=== PATIENT | female | born 1945 | race Caucasian/White ===

== ENCOUNTER 2019-04-10 17:49 | Inpatient (IN) | payer MEDICARE ==
[2019-04-10 18:21] LABS: HEMATOCRIT 33.6 % (36.0-47.0); MEAN CORPUSCULAR HEMOGLOBIN 25.7 pg (27.0-33.4); MEAN CORPUSCULAR HGB CONC 32.6 g/dL (32.0-36.0); MEAN CORPUSCULAR VOLUME 79 fl (80-97); PLATELET COUNT 463 10^3/uL (150-450); RED BLOOD COUNT 4.27 10^6/uL (3.72-5.28); RED CELL DISTRIBUTION WIDTH 16.7 % (11.5-14.0); WHITE BLOOD COUNT 12.7 10^3/uL (4.0-10.5)
[2019-04-10 18:35] LABS: ALBUMIN 2.1 g/dL (3.5-5.0); ALKALINE PHOSPHATASE 107 U/L (38-126); ANION GAP 8 (5-19); ASPARTATE AMINO TRANSFERASE 14 U/L (14-36); BILIRUBIN,DIRECT 0.3 mg/dL (0.0-0.4); BILIRUBIN,TOTAL 0.6 mg/dL (0.2-1.3); BLOOD UREA NITROGEN 39 mg/dL (7-20); CALCIUM 7.1 mg/dL (8.4-10.2); CARBON DIOXIDE 29 mmol/L (22-30); CHLORIDE 96 mmol/L (98-107); GLUCOSE 84 mg/dL (75-110); TOTAL PROTEIN 4.9 g/dL (6.3-8.2)
[2019-04-10 18:37] LABS: CREATINE KINASE < 20 U/L (30-135)
[2019-04-10 18:39] LABS: POTASSIUM 2.3 mmol/L (3.6-5.0)
[2019-04-10 18:43] LABS: ABSOLUTE LYMPHOCYTES# (MANUAL) 0.1 10^3/uL (0.5-4.7); ABSOLUTE MONOCYTES # (MANUAL) 0.3 10^3/uL (0.1-1.4); BASOPHILS % (MANUAL) 0 % (0-2); EOSINOPHILS % (MANUAL) 0 % (0-6); LYMPHOCYTES % (MANUAL) 1 % (13-45); MONOCYTES % (MANUAL) 2 % (3-13); SEGMENTED NEUTROPHILS % (MAN) 97 % (42-78); TOTAL CELLS COUNTED 100
[2019-04-10 18:44] LABS: ANISOCYTOSIS 1+; CREATINE KINASE MB 1.11 ng/mL (<4.55); PLATELET COMMENT ADEQUATE
[2019-04-10 18:47] LABS: TROPONIN I 0.014 ng/mL
--- NOTE | 2019-04-10 18:47 | RADIOLOGY REPORT (SQ) ---
EXAM DESCRIPTION: CHEST SINGLE VIEW COMPLETED DATE/TIME: 04/10/2019 6:37 pm REASON FOR STUDY: chest pain COMPARISON: None. EXAM PARAMETERS: NUMBER OF VIEWS: One view. TECHNIQUE: Single frontal radiographic view of the chest acquired. RADIATION DOSE: NA LIMITATIONS: None. FINDINGS: LUNGS AND PLEURA: Hypoventilated lungs. Right diaphragmatic eventration. Bibasilar airsp guido opacities. No pneumothorax. No left-sided pleural effusion. MEDIASTINUM AND HILAR STRUCTURES: No masses. Contour normal. HEART AND VASCULAR STRUCTURES: Cardiomegaly. BONES: No acute findings. HARDWARE: None in the chest. OTHER: No other significant finding. IMPRESSION: Hypoventilated lungs and right diaphragmatic eventration. Bibasilar airspace opacities. Cardiomegaly. TECHNICAL DOCUMENTATION: JOB ID: [id number] 2010 [employer]- All Rights Reserved Reading location - IP/workstation name: [email or web address]
[2019-04-10] MEDS ORDERED: MORPHINE SULFATE 10 MG/ML INJ IV ONE (20:26)
[2019-04-10] MEDS ORDERED: ONDANSETRON HCL INJ/PF 4 MG/2 ML SDV IV ONE (20:27)
[2019-04-10] MEDS: POTASSI CL 20 MEQ/50 ML RIDER 20 MEQ/50 ML RTUPB IV SCH ×2 (20:35→22:18)
--- NOTE | 2019-04-10 20:56 | ER Document Report ---
ED General - General Chief Complaint: Chest Pain Stated Complaint: CHEST,BACK PAIN Time Seen by Provider: 04/10/19 20:13 TRAVEL OUTSIDE OF THE [place] IN LAST 30 DAYS: No - HPI Notes: Patient is a 73-year-old female who presents to the emergency department for evaluation via EMS. She is an extremely poor historian, and there is no other family or friends present at the bedside. The patient only talks to me about pain in her right side and her back. She states that sharp and stabbing. She states this started today. She denies any fevers or chills. She denies any coughing or shortness of breath. She states she is been eating and drinking normally. She admits freely that she does not see a primary care provider, has not seen one in years, states "I have not needed 1." She really cannot describe her pain or rate it for me, but asks repeatedly for something for her pain. I asked her about edema, she states she has never had any. When I showed her extremely edematous legs, she states she did not know that was edema. She cannot give me any further details regarding this. - Related Data Allergies/Adverse Reactions: No Known Allergies Allergy (Unverified 04/10/19 20:57) Home Medications: None Past Medical History - General Information source: Patient, Emergency Med Personnel - Social History Smoking Status: Unknown if Ever Smoked Chew tobacco use (# tins/day): No Frequency of alcohol use: None Drug Abuse: None Family History: Other - Unable to obtain Patient has suicidal ideation: No Patient has homicidal ideation: No Psychiatric Medical History: Reports: Hx Dementia - Patient's son and informed a nurse via telephone of this diagnosis Review of Systems - Review of Systems Cardiovascular: See HPI -: Yes All other systems reviewed and negative Physical Exam - Vital signs Vitals: Pulse Ox 88 L 04/10/19 17:56 - Notes Notes: This is a frail-appearing 73-year-old female who appears her stated age in a mild amount of distress. She is mildly tachypneic, clearly uncomfortable. She does have some increased work of breathing, but minimally. Vital signs reviewed, please refer to chart. Head is normocephalic, atraumatic. Pupils equal round, reactive to light. Neck is supple without meningismus. Heart is tachycardic with normal S1-S2. Lungs reveal markedly diminished breath sounds at the right base. Abdomen is soft, mildly distended and diffusely tender without rebound or guarding, normoactive bowel sounds throughout. Extremities without cyanosis, clubbing. She has 3+ pitting edema to bilateral lower extremities. Posterior calves are nontender. Peripheral pulses are equal. Skin is warm and dry. Patient is awake, alert, neurological exam is nonfocal. Course - Re-evaluation Re-evalutation: 04/10/19 20:55 Patient presents to the emergency department for evaluation. She is an extremely poor historian. She was placed on the monitor, oxygen per nasal cannula she was hypoxic on presentation. Laboratory investigations were obtained, as were EKG and chest x-ray. The patient was found to be markedly hypokalemic prior to my evaluation, IV potassium was ordered via APC. Magnesium level is added and found to be unremarkable. I do have a high suspicion of failure in this patient. Chest x-ray showed bibasilar airspace disease and findings consistent with a likely right-sided pleural effusion. The patient does have an elevated white count and an elevated heart rate, so blood cultures added. I will cover her her for potential pneumonia given the fact that she meets sepsis criteria, but I do believe this patient's primary issue is heart failure, and will treat her as such. As a result, she will not be given IV fl uids. proBNP was added. It was found to be elevated. Patient was given morphine which should help with pain as well as pulmonary vasodilation. I do not see enough significant distress to warrant BiPAP at this time, and I do not think that this patient with dementia would tolerate it. I did consider Lasix therapy, but with her marked hypokalemia I do not think that is appropriate at this time. Patient will be started on nitroglycerin infusion, we will continue to monitor. Awaiting second troponin, will call medicine for admission. 04/10/19 22:12 Patient is stable. Her pain was improved significantly with the morphine. Her second troponin is negative. I do believe this is all congestive heart failure. I spoke with Dr. Dean, he will accept the patient for admission. - Vital Signs Vital signs: Temp Pulse Resp BP Pulse Ox 98.1 F 24 H 144/89 H 95 04/10/19 20:55 04/10/19 21:01 04/10/19 21:00 04/10/19 21:01 - Laboratory Result Diagrams: 04/10/19 18:05 04/10/19 18:05 Laboratory results interpreted by me: 04/10/19 04/10/19 04/10/19 18:05 18:05 18:05 WBC 12.7 H Hgb 11.0 L Hct 33.6 L MCV 79 L MCH 25.7 L RDW 16.7 H Plt Count 463 H Seg Neuts % (Manual) 97 H Lymphocytes % (Manual) 1 L Monocytes % (Manual) 2 L Abs Neuts (Manual) 12.3 H Abs Lymphs (Manual) 0.1 L Sodium 133.3 L Potassium 2.3 L* Chloride 96 L BUN 39 H Creatinine 1.86 H Est GFR ( Amer) 32 L Est GFR (MDRD) Non-Af 27 L Calcium 7.1 L Creatine Kinase < 20 L NT-Pro-B Natriuret Pep 8760 H Total Protein 4.9 L Albumin 2.1 L - Diagnostic Test Radiology reviewed: Reports reviewed Radiology results interpreted by me: 04/10/19 21:04 Chest X-Ray 04/10/19 17:56 IMPRESSION: Hypoventilated lungs and right diaphragmatic eventration. Bibasilar airspace opacities. Cardiomegaly. - EKG Interpretation by Me Additional EKG results interpreted by me: 04/10/19 21:04 Sinus mechanism at 100 bpm. Multifocal PVCs noted. Left axis deviation. T wave flattening consistent with hypokalemia, nonspecific ST changes throughout, but no elevation concerning for acute infarction. There are no old studies available for comparison. Discharge - Discharge Clinical Impression: New onset of congestive heart failure, Hypokalemia, Hypoxia Sepsis Qualifiers: Sepsis type: sepsis due to unspecified organism Sepsis acute organ dysfunction status: without acute organ dysfunction Qualified Code(s): A41.9 - Sepsis, unspecified organism Condition: Stable Disposition: ADMITTED INPATIENT Admitting Provider: Jermaine (Hospitalist) Unit Admitted: [facility]
[2019-04-10] MEDS ORDERED: NITROGLYCERIN/D5W 50 MG/250 ML RTUINJ IV PRN (21:00)
[2019-04-10] MEDS ORDERED: ASPIRIN 81 MG TABLET, CHEWABLE PO ONE (21:01)
[2019-04-10] MEDS ORDERED: CEFTRIAXONE 1 GM/D5W RTU 1 GM/50 ML RTUPB IV ONE (21:05)
[2019-04-10] MEDS ORDERED: AZITHROMYCIN INJ 500 MG VIAL IV ONE (21:05)
[2019-04-10] MEDS ORDERED: POTASSIUM CHLORIDE 10 MEQ TABLET.ER PO ONE ×2 (21:58→23:00)
[2019-04-10] MEDS ORDERED: ACETAMINOPHEN 325 MG TABLET PO PRN (22:12)
[2019-04-10] MEDS ORDERED: MAG HYDROX/AL HYDROX/SIMETH SUSP 30 ML UDCUP PO PRN (22:12)
[2019-04-10] MEDS ORDERED: POTASSI CL 20 MEQ/50 ML RIDER 20 MEQ/50 ML RTUPB IV SCH (22:15)
[2019-04-10 22:37] LABS: RETICULOCYTE COUNT (AUTO) 0.69 % (0.66-2.85)
[2019-04-10] MEDS ORDERED: FUROSEMIDE INJ/PF 40 MG/4 ML SDV IV ONE (22:45)
--- NOTE | 2019-04-10 22:46 | EKG REPORT ---
SEVERITY:- ABNORMAL ECG - SINUS TACHYCARDIA MULTIFORM VENTRICULAR PREMATURE COMPLEXES LEFT AXIS DEVIATION CONSIDER ANTEROSEPTAL INFARCT NONSPECIFIC REPOL ABNORMALITY, LATERAL LEADS : Confirmed by: Neha Cheng MD 10-Apr-2019 22:45:26
[2019-04-10 22:50] LABS: IRON(TIBC) 19.3 ug/dL (37-170)
[2019-04-10 23:57] LABS: FOLATE 4.35 ng/mL (>2.76)
[2019-04-11] MEDS: POTASSI CL 20 MEQ/50 ML RIDER 20 MEQ/50 ML RTUPB IV SCH ×2 (01:03→05:14)
[2019-04-11 01:56] LABS: APPEARANCE,URINE CLOUDY; BILIRUBIN,URINE NEGATIVE (NEGATIVE); COLOR,URINE DARK YELLOW; GLUCOSE, URINE NEGATIVE (NEGATIVE); KETONES,URINE NEGATIVE (NEGATIVE); LEUKOCYTE ESTERASE,URINE SMALL (NEGATIVE); NITRITE,URINE NEGATIVE (NEGATIVE); PROTEIN,URINE 30 mg/dL (NEGATIVE); URINE SPECIFIC GRAVITY 1.019
--- NOTE | 2019-04-11 03:01 | RADIOLOGY REPORT (SQ) ---
EXAM DESCRIPTION: CT ABDOMEN PELVIS WITHOUT IV CONTRAST COMPLETED DATE/TME: 04/10/2019 23:05 CLINICAL HISTORY: 73 years, Female, abdominal distension COMPARISON: None. TECHNIQUE: Axial CT images of the abdomen and pelvis were obtained after the injection of IV contrast. Oral contrast was administered. DLP 283 Images stored on PACS. All CT scanners at this facility use dose modulation, iterative reconstruction, and/or weight based dosing when appropriate to reduce radiation dose to as low as reasonably achievable (ALARA). [facility]: Dose Right [facility]: CareDose [facility]: Dose Right [facility]: Teradose 4D [facility]: [employer] LIMITATIONS: None. FINDINGS: There are three nodules within the right middle lobe which measure up to 1 cm in size. There is a 4 mm nodule within the left upper lobe. There is a small right pleural effusion. Right hepatic lobe contains a 3.9 cm hypodensity. Cholecystectomy clips are noted. The pancreas, spleen, and adrenal glands are unremarkable. There is no evidence of urolithiasis or hydronephrosis bilaterally. Both kidneys appear unremarkable. There is a large amount of fluid within the abdomen and pelvis which appears to contain some septations and loculations and causes significant mass effect, particularly along the left side the abdomen displacing its contents medially. There are numerous bubbles of air within the fluid centrally. There is a 9.9 x 5.7 cm lobulated hyperdense mass just anterior to the aorta at the level of L4-L5. There are atherosclerotic calcifications of the aorta without evidence of an aneurysm. There is a small hiatal hernia. Oral contrast is noted within the small bowel. No dilated loops of small bowel are identified. The appendix is normal. The colon is incompletely distended. The uterus appears unremarkable. The urinary bladder is incompletely distended. There are no lytic or blastic bone lesions. IMPRESSION: Large amount of fluid within the abdomen and pelvis with multiple septations containing bubbles of air centrally. This may be due to bacterial peritonitis or peritoneal carcinomatosis. Lobulated mass anterior to the aorta at the level of L4-L5, concerning for malignancy/lymphadenopathy. Pulmonary nodules measuring up to 1 cm in size. Recommend repeat CT at 3, 9, and 24 months; PET-CT; or biopsy. Small right pleural effusion. TECHNICAL DOCUMENTATION: Quality ID # 436: Final reports with documentation of one or more dose reduction techniques (e.g., Automated exposure control, adjustment of the mA and/or kV according to patient size, use of iterative reconstruction technique) copyright 2010 [employer]- All Rights Reserved
--- NOTE | 2019-04-11 05:51 | PDOC H&P ---
History of Present Illness Admission Date/PCP: 04/10/19 22:20 Patient complains of: Back pain History of Present Illness: SEAN SRINIVASAN is a 73 year old female with an unclear past medical history. She is an extremely poor historian and without medical record. She is brought to the emergency room for evaluation by EMS for sharp and stabbing back pain of unclear duration. On exam she is confused and disheveled with abdominal distention and lower extremity edema. Labs reveal leukocytosis, microcytic anemia, renal failure, BNP of 8700 and hypokalemia. Imaging reveals a right sided pleural effusion, she is ordered potassium and referred to the hospitalist for admission. Past Medical History Medical History: None Cardiac Medical History: Reports: None Psychiatric Medical History: Reports: Dementia - Patient's son and informed a nurse via telephone of this diagnosis Social History Information Source: Patient Lives with: Family Smoking Status: Never Smoker Electronic Cigarette use?: No Frequency of Alcohol Use: None Drugs: None - Advance Directive Resuscitation Status: Full Code Family History Family History: Other - Unable to obtain Parental Family History Reviewed: No - Unobtainable Children Family History Reviewed: No - Unobtainable Sibling(s) Family History Reviewed.: No - Unobtainable Medication/Allergy Allergies/Adverse Reactions: No Known Allergies Allergy (Unverified 04/10/19 20:57) Review of Systems ROS unobtainable: Due to mental status Physical Exam Vital Signs: Temp Pulse Resp BP Pulse Ox 97.6 F 96 18 131/76 H 94 04/11/19 04:16 04/11/19 05:00 04/11/19 04:16 04/11/19 05:00 04/11/19 04:16 Intake & Output 04/09/19 04/10/19 04/11/19 11:59 11:59 11:59 Intake Total 943 Balance 943 Weight 55.9 kg General appearance: PRESENT: cooperative, disheveled, mild distress, thin, well- developed, well-nourished Head exam: PRESENT: atraumatic, normocephalic Eye exam: PRESENT: conjunctiva pink, EOMI, PERRLA. ABSENT: scleral icterus Ear exam: PRESENT: normal external ear exam Mouth exam: PRESENT: moist, tongue midline Neck exam: ABSENT: carotid bruit, JVD, lymphadenopathy, thyromegaly Respiratory exam: PRESENT: crackles, decreased breath sounds, prolonged expiratory phas, tachypnea Cardiovascular exam: PRESENT: RRR, tachycardia. ABSENT: diastolic murmur, rubs, systolic murmur Pulses: PRESENT: normal dorsalis pedis pul Vascular exam: PRESENT: normal capillary refill GI/Abdominal exam: PRESENT: ascites, distended, firm, hypoactive bowel sounds, mass - Periumbilical, left, mid line pelvic mass, rigid, tenderness - Periumbilical. ABSENT: guarding Rectal exam: PRESENT: deferred Extremities exam: PRESENT: full ROM, +2 edema. ABSENT: tenderness Neurological exam: PRESENT: alert, altered, awake, oriented to person, oriented to situation, CN II-XII grossly intact. ABSENT: motor sensory deficit Psychiatric exam: PRESENT: appropriate affect, unusual affect. ABSENT: homicidal ideation, suicidal ideation Focused psych exam: PRESENT: flight of ideas Skin exam: PRESENT: dry, intact, warm. ABSENT: cyanosis, rash Results Laboratory Results: 04/10/19 18:05 04/10/19 18:05 04/10/19 04/10/19 04/10/19 18:05 18:05 18:05 WBC 12.7 H RBC 4.27 Hgb 11.0 L Hct 33.6 L MCV 79 L MCH 25.7 L MCHC 32.6 RDW 16.7 H Plt Count 463 H Seg Neutrophils % Not Reportable Retic Count (auto) Sodium 133.3 L Potassium 2.3 L* Chloride 96 L Carbon Dioxide 29 Anion Gap 8 BUN 39 H Creatinine 1.86 H Est GFR ( Amer) 32 L Glucose 84 Lactic Acid Calcium 7.1 L Magnesium 1.6 Iron TIBC % Saturation Ferritin Total Bilirubin 0.6 AST 14 Alkaline Phosphatase 107 Total Protein 4.9 L Albumin 2.1 L Vitamin B12 Folate TSH Urine Color Urine Appearance Urine pH Ur Specific [place] Urine Protein Urine Glucose (UA) Urine Ketones Urine Blood Urine Nitrite Ur Leukocyte Esterase Urine WBC (Auto) Urine RBC (Auto) 04/10/19 04/10/19 04/10/19 18:05 18:05 18:05 WBC RBC Hgb Hct MCV MCH MCHC RDW Plt Count Seg Neutrophils % Retic Count (auto) 0.69 Sodium Potassium Chloride Carbon Dioxide Anion Gap BUN Creatinine Est GFR ( Amer) Glucose Lactic Acid Calcium Magnesium Iron 19.3 L TIBC 148 L % Saturation 13 Ferritin 262.00 Total Bilirubin AST Alkaline Phosphatase Total Protein Albumin Vitamin B12 > 1000.0 H Folate 4.35 TSH 2.49 Urine Color Urine Appearance Urine pH Ur Specific [place] Urine Protein Urine Glucose (UA) Urine Ketones Urine Blood Urine Nitrite Ur Leukocyte Esterase Urine WBC (Auto) Urine RBC (Auto) 04/10/19 04/11/19 21:39 01:25 WBC RBC Hgb Hct MCV MCH MCHC RDW Plt Count Seg Neutrophils % Retic Count (auto) Sodium Potassium Chloride Carbon Dioxide Anion Gap BUN Creatinine Est GFR ( Amer) Glucose Lactic Acid 1.3 Calcium Magnesium Iron TIBC % Saturation Ferritin Total Bilirubin AST Alkaline Phosphatase Total Protein Albumin Vitamin B12 Folate TSH Urine Color DARK YELLOW Urine Appearance CLOUDY Urine pH 5.0 Ur Specific [place] 1.019 Urine Protein 30 H Urine Glucose (UA) NEGATIVE Urine Ketones NEGATIVE Urine Blood NEGATIVE Urine Nitrite NEGATIVE Ur Leukocyte Esterase SMALL H Urine WBC (Auto) 27 Urine RBC (Auto) 4 04/10/19 04/10/19 04/10/19 18:05 18:05 18:05 Creatine Kinase < 20 L CK-MB (CK-2) 1.11 Troponin I 0.014 Cancelled NT-Pro-B Natriuret Pep 8760 H 04/10/19 04/11/19 20:35 02:59 Creatine Kinase CK-MB (CK-2) Troponin I 0.016 0.017 NT-Pro-B Natriuret Pep Impressions: Chest X-Ray 04/10/19 17:56 IMPRESSION: Hypoventilated lungs and right diaphragmatic eventration. Bibasilar airspace opacities. Cardiomegaly. Abdomen/Pelvis CT 04/10/19 23:05 IMPRESSION: Large amount of fluid within the abdomen and pelvis with multiple septations containing bubbles of air centrally. This may be due to bacterial peritonitis or peritoneal carcinomatosis. Lobulated mass anterior to the aorta at the level of L4-L5, concerning for malignancy/lymphadenopathy. Pulmonary nodules measuring up to 1 cm in size. Recommend repeat CT at 3, 9, and 24 months; PET-CT; or biopsy. Small right pleural effusion. TECHNICAL DOCUMENTATION: Quality ID # 436: Final reports with documentation of one or more dose reduction techniques (e.g., Automated exposure control, adjustment of the mA and/or kV according to patient size, use of iterative reconstruction technique) copyright 2011 [employer]- All Rights Reserved Assessment and Plan - Diagnosis (1) Abdominal mass Qualifiers: Abdominal location: left lower quadrant Qualified Code(s): R19.04 - Left lower quadrant abdominal swelling, mass and lump Is this a current diagnosis for this admission?: Yes Plan: Follow-up CT (2) Pleural effusion Is this a current diagnosis for this admission?: Yes Plan: Follow-up INR and thoracentesis (3) Encephalopathy Is this a current diagnosis for this admission?: Yes Plan: Unclear duration, likely underlying dementia, attempts to contact son unsuccessful (4) Hypokalemia Is this a current diagnosis for this admission?: Yes Plan: IV repletion, follow-up chemistry (5) New onset of congestive heart failure Is this a current diagnosis for this admission?: Yes Plan: ENRRIQUE inhibitor, gentle diuresis, follow-up echo - Time Time Spent with patient: 25-34 minutes - Inpatient Certification Medical Necessity: Need Close Monitoring Due to Risk of Patient Decompensation
[2019-04-11] MEDS ORDERED: IRON SUCROSE COMPLEX INJ/PF 100 MG/5 ML SDV IV ONE (05:56)
[2019-04-11] MEDS ORDERED: HEPARIN SOD (PORCINE) 5,000 UNIT/ML 1 ML VIAL SUBCUT SCH (06:00)
[2019-04-11 06:24] LABS: HEMATOCRIT 33.1 % (36.0-47.0); HEMOGLOBIN 10.7 g/dL (12.0-15.5); MEAN CORPUSCULAR HEMOGLOBIN 25.5 pg (27.0-33.4); MEAN CORPUSCULAR HGB CONC 32.4 g/dL (32.0-36.0); MEAN CORPUSCULAR VOLUME 79 fl (80-97); PLATELET COUNT 388 10^3/uL (150-450); RED BLOOD COUNT 4.19 10^6/uL (3.72-5.28); RED CELL DISTRIBUTION WIDTH 16.9 % (11.5-14.0); WHITE BLOOD COUNT 11.1 10^3/uL (4.0-10.5)
[2019-04-11 06:27] LABS: ANION GAP 9 (5-19); BLOOD UREA NITROGEN 48 mg/dL (7-20); CALCIUM 8.1 mg/dL (8.4-10.2); CARBON DIOXIDE 30 mmol/L (22-30); CHLORIDE 93 mmol/L (98-107); GLUCOSE 84 mg/dL (75-110)
[2019-04-11 06:29] LABS: INTERNATIONAL RATION (INR) 1.26; PROTHROMBIN TIME 15.9 SEC (11.4-15.4)
[2019-04-11 06:40] LABS: POTASSIUM 4.6 mmol/L (3.6-5.0)
[2019-04-11 07:17] LABS: ABSOLUTE LYMPHOCYTES# (MANUAL) 0.1 10^3/uL (0.5-4.7); ABSOLUTE MONOCYTES # (MANUAL) 0.2 10^3/uL (0.1-1.4); BASOPHILS % (MANUAL) 0 % (0-2); EOSINOPHILS % (MANUAL) 0 % (0-6); LYMPHOCYTES % (MANUAL) 1 % (13-45); MONOCYTES % (MANUAL) 2 % (3-13); SEGMENTED NEUTROPHILS % (MAN) 97 % (42-78); TOTAL CELLS COUNTED 100
[2019-04-11 07:20] LABS: ANISOCYTOSIS SLIGHT; PLATELET COMMENT ADEQUATE
[2019-04-11] MEDS ORDERED: DEXTROSE 50%-WATER 25 GM/50 ML DISP.SYRIN IV PRN ×2 (09:33)
[2019-04-11] MEDS ORDERED: DEXTROSE 40% GEL 15 GM TUBE PO PRN ×2 (09:33)
[2019-04-11] MEDS ORDERED: GLUCAGON,HUMAN RECOMB 1 MG INJ SUBCUT PRN (09:33)
[2019-04-11] MEDS: POTASSIUM CHLORIDE 10 MEQ TABLET.ER PO SCH ×2 (09:39→21:44)
[2019-04-11] MEDS: VALSARTAN 80 MG TABLET PO SCH (09:40)
[2019-04-11] MEDS: ASPIRIN 81 MG TABLET, ENT COATED PO SCH (09:41)
[2019-04-11] MEDS ORDERED: FUROSEMIDE INJ/PF 40 MG/4 ML SDV IV SCH (10:00)
[2019-04-11] MEDS: FUROSEMIDE INJ/PF 20 MG/2 ML SDV IV SCH ×2 (11:30→17:16)
[2019-04-11 11:36] LABS: INTERNATIONAL RATION (INR) 1.28; PROTHROMBIN TIME 16.1 SEC (11.4-15.4)
[2019-04-11] MEDS: SPIRONOLACTONE 25 MG TABLET PO SCH (11:38)
[2019-04-11] MEDS: CEFTRIAXONE 1 GM/D5W RTU 1 GM/50 ML RTUPB IV SCH (11:38)
[2019-04-11] MEDS: CARVEDILOL 3.125 MG TABLET PO SCH ×2 (11:38→21:44)
[2019-04-11] MEDS ORDERED: CEFOTAXIME SODIUM 2 GM in DEXTROSE 5%-WATER 50 ML IV SCH (14:00)
--- NOTE | 2019-04-11 15:25 | RADIOLOGY REPORT (SQ) ---
EXAM DESCRIPTION: U/S CHEST COMPLETED DATE/TIME: 04/11/2019 2:42 pm REASON FOR STUDY: Right-sided pleural effusion with abdominal mass COMPARISON: CT of the chest from 04/11/2019. TECHNIQUE: Static and dynamic grayscale images of the posterior right hemithorax were obtained and s ubmitted to PACS. LIMITATIONS: None. FINDINGS: There is a moderate amount of fluid in the right pleural space ; despite the presence of t he fluid the patient was unable to be seated upright or positioned in a manner that would enable the commercial fishing vessel operator to perform a thoracentesis. IMPRESSION: Moderate amount of fluid in the right pleural space. Despite the presence of the fluid the patient was unable to be seated upright or positioned in a gordon er that would enable the commercial fishing vessel operator to perform a thoracentesis. TECHNICAL DOCUMENTATION: JOB ID: [id number] 2010 [employer]- All Rights Reserved Reading location - IP/workstation name: [email or web address]
--- NOTE | 2019-04-11 15:48 | RADIOLOGY REPORT (SQ) ---
EXAM DESCRIPTION: U/S ABDOMEN LIMITED W/O DOP COMPLETED DATE/TIME: 04/11/2019 2:42 pm REASON FOR STUDY: SBP vs peritoneal carcinomatosis COMPARISON: CT of the abdomen and pelvis without contrast from 04/11/2019. TECHNIQUE: Dynamic and static grayscale images of all 4 quadrants were obtained in anticipation of a paracentesis. The images were submitted to PACs for interpretation. LIMITATIONS: None. FINDINGS: On ultrasound the loculated fluid described on the correlative CT is complex and appears t o contain solid components. Based on this findings it was decided to abort the planned paracentesis. IMPRESSION: On ultrasound the loculated fluid described on the correlative CT is complex and appears to contain solid components. 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 TECHNICAL DOCUMENTATION: JOB ID: [id number] 2010 [employer]- All Rights Reserved Reading location - IP/workstation name: [email or web address]
[2019-04-11] MEDS ORDERED: DEXTROSE 5%-NORMAL SALINE 1,000 ML IV PRN (17:23)
--- NOTE | 2019-04-11 19:06 | PDOC PROGRESS REPORT ---
Subjective Progress Note for:: 04/11/19 Subjective:: SEAN SRINIVASAN is a 73 year old female with an unclear past medical history. She is an extremely poor historian and without medical record. She was admitted 04/10/2019 with New onset CHF, acute renal failure, and abdominal masses. Patient seen on morning rounds with her son and close friend present. She is alert and oriented x4 but with delayed responses. She does confirm lower back pain and generalized abdominal discomfort but without nausea. She is unable to tell me how long she is been symptomatic but feels that this is been gradually progressing for quite some time. She denies recent weight loss. She does confirm that she is a DNR/DNI. She denies fever, chills, chest pain, palpitations, dyspnea, orthopnea. Discussed plan of care for further work-up with patient and family members. Nursing was present. Reason For Visit: DEMENTIA,HEART FAILURE Physical Exam Vital Signs: Temp Pulse Resp BP Pulse Ox 98.3 F 88 26 H 143/82 H 97 04/11/19 15:40 04/11/19 15:40 04/11/19 15:40 04/11/19 15:40 04/11/19 15:40 Intake & Output 04/10/19 04/11/19 04/12/19 06:59 06:59 06:59 Intake Total 943 50 Balance 943 50 Weight 53.5 kg General appearance: PRESENT: cooperative, disheveled, thin, well-developed, other - Frail, chronically ill-appearing. Head exam: PRESENT: atraumatic, normocephalic Eye exam: PRESENT: conjunctiva pink, EOMI, PERRLA. ABSENT: scleral icterus Ear exam: PRESENT: normal external ear exam Mouth exam: PRESENT: moist, tongue midline Respiratory exam: PRESENT: crackles, symmetrical, unlabored, other - Supplemental oxygen via nasal cannula. ABSENT: rales, rhonchi, wheezes Cardiovascular exam: PRESENT: RRR, +S1, +S2. ABSENT: diastolic murmur, rubs, systolic murmur Vascular exam: PRESENT: normal capillary refill GI/Abdominal exam: PRESENT: distended, firm, hypoactive bowel sounds, tenderness - Generalized. ABSENT: guarding, mass, organolmegaly, rebound Rectal exam: PRESENT: deferred Gentrourinary exam: PRESENT: indwelling catheter Extremities exam: PRESENT: full ROM, +2 edema - BLE. ABSENT: calf tenderness, clubbing, pedal edema Neurological exam: PRESENT: alert, awake, oriented to person, oriented to place, oriented to time, oriented to situation, CN II-XII grossly intact. ABSENT: motor sensory deficit Psychiatric exam: PRESENT: appropriate affect, normal mood. ABSENT: homicidal ideation, suicidal ideation Skin exam: PRESENT: dry, intact, warm. ABSENT: cyanosis, rash Results Laboratory Results: 04/11/19 06:04 04/11/19 06:04 04/10/19 04/10/19 04/10/19 18:05 18:05 18:05 WBC 12.7 H RBC 4.27 Hgb 11.0 L Hct 33.6 L MCV 79 L MCH 25.7 L MCHC 32.6 RDW 16.7 H Plt Count 463 H Seg Neutrophils % Retic Count (auto) Sodium Potassium Chloride Carbon Dioxide Anion Gap BUN Creatinine Est GFR ( Amer) Glucose Lactic Acid Calcium Magnesium 1.6 Iron TIBC % Saturation Ferritin Vitamin B12 Folate TSH 2.49 Urine Color Urine Appearance Urine pH Ur Specific [place] Urine Protein Urine Glucose (UA) Urine Ketones Urine Blood Urine Nitrite Ur Leukocyte Esterase Urine WBC (Auto) Urine RBC (Auto) 04/10/19 04/10/19 04/10/19 18:05 18:05 21:39 WBC RBC Hgb Hct MCV MCH MCHC RDW Plt Count Seg Neutrophils % Retic Count (auto) 0.69 Sodium Potassium Chloride Carbon Dioxide Anion Gap BUN Creatinine Est GFR ( Amer) Glucose Lactic Acid 1.3 Calcium Magnesium Iron 19.3 L TIBC 148 L % Saturation 13 Ferritin 262.00 Vitamin B12 > 1000.0 H Folate 4.35 TSH Urine Color Urine Appearance Urine pH Ur Specific [place] Urine Protein Urine Glucose (UA) Urine Ketones Urine Blood Urine Nitrite Ur Leukocyte Esterase Urine WBC (Auto) Urine RBC (Auto) 04/11/19 04/11/19 04/11/19 01:25 06:04 06:04 WBC 11.1 H RBC 4.19 Hgb 10.7 L Hct 33.1 L MCV 79 L MCH 25.5 L MCHC 32.4 RDW 16.9 H Plt Count 388 Seg Neutrophils % Not Reportable Retic Count (auto) Sodium 131.6 L Potassium 4.6 D Chloride 93 L Carbon Dioxide 30 Anion Gap 9 BUN 48 H Creatinine 2.22 H Est GFR ( Amer) 26 L Glucose 84 Lactic Acid Calcium 8.1 L Magnesium Iron TIBC % Saturation Ferritin Vitamin B12 Folate TSH Urine Color DARK YELLOW Urine Appearance CLOUDY Urine pH 5.0 Ur Specific [place] 1.019 Urine Protein 30 H Urine Glucose (UA) NEGATIVE Urine Ketones NEGATIVE Urine Blood NEGATIVE Urine Nitrite NEGATIVE Ur Leukocyte Esterase SMALL H Urine WBC (Auto) 27 Urine RBC (Auto) 4 04/10/19 04/10/19 04/10/19 18:05 18:05 18:05 Creatine Kinase < 20 L CK-MB (CK-2) 1.11 Troponin I 0.014 Cancelled NT-Pro-B Natriuret Pep 8760 H 04/10/19 04/11/19 04/11/19 20:35 02:59 08:23 Creatine Kinase CK-MB (CK-2) Troponin I 0.016 0.017 0.013 NT-Pro-B Natriuret Pep 04/11/19 15:10 Creatine Kinase CK-MB (CK-2) Troponin I < 0.012 NT-Pro-B Natriuret Pep Impressions: Chest X-Ray 04/10/19 17:56 IMPRESSION: Hypoventilated lungs and right diaphragmatic eventration. Bibasilar airspace opacities. Cardiomegaly. Abdomen/Pelvis CT 04/10/19 23:05 IMPRESSION: Large amount of fluid within the abdomen and pelvis with multiple septations containing bubbles of air centrally. This may be due to bacterial peritonitis or peritoneal carcinomatosis. Lobulated mass anterior to the aorta at the level of L4-L5, concerning for malignancy/lymphadenopathy. Pulmonary nodules measuring up to 1 cm in size. Recommend repeat CT at 3, 9, and 24 months; PET-CT; or biopsy. Small right pleural effusion. TECHNICAL DOCUMENTATION: Quality ID # 436: Final reports with documentation of one or more dose reduction techniques (e.g., Automated exposure control, adjustment of the mA and/or kV according to patient size, use of iterative reconstruction technique) copyright 2011 [employer]- All Rights Reserved Chest Ultrasound 04/11/19 00:00 IMPRESSION: Moderate amount of fluid in the right pleural space. Despite the presence of the fluid the patient was unable to be seated upright or positioned in a manner that would enable the string winding machine operator to perform a thoracentesis. Abdomen Ultrasound 04/11/19 09:33 IMPRESSION: On ultrasound the loculated fluid described on the correlative CT is complex and appears to contain solid components. These findings are concer no for peritoneal carcinomatosis. Assessment and Plan - Diagnosis (1) Peritoneal carcinomatosis Is this a current diagnosis for this admission?: Yes Plan: CT abdomen pelvis as well as abdominal ultrasound imaging very concerning for peritoneal carcinomatosis. Patient did go down for paracentesis to rule out continues bacterial peritonitis and obtain fluid for cytology; per radiology, there was no fluid present and abdominal ultrasound revealed only Loculated fluid containing solid components. Dr. Pratt is consulted for assistance. She is placed on IV Rovephin prophylactically for SBP, although I have low suspicion. Blood cultures pending. Patient confirms she is a DNR/DNI and indicates that if cancer is confirmed she would like to discharge to home with hospice. (2) Acute renal failure Is this a current diagnosis for this admission?: Yes Plan: Creatinine is trending up; 1.86-2.22. We will optimize cardiac output. She is receiving IV furosemide to diurese. Avoid nephrotoxic medications as able. Follow-up chemistry. (3) New onset of congestive heart failure Is this a current diagnosis for this admission?: Yes Plan: Echocardiogram is pending. Patient is admitted to [facility] on continuous cardiac telemetry. She is placed on low-dose carvedilol 3.125 mg twice daily and valsartan 80 mg daily. Currently receiving IV furosemide for diuresis. Have started p.o. spironolactone. Daily aspirin. Cardiac diet. Strict I&O's. (4) Pleural effusion Is this a current diagnosis for this admission?: Yes Plan: Secondary to acute CHF and acute renal failure. Continue IV furosemide for diuresis. The patient did attempt thoracentesis today but was unable to tolerate positioni ng. (5) Hypokalemia Is this a current diagnosis for this admission?: Yes Plan: Replete. Patient has poor p.o. intake; likely to recur. Have started p.o. spironolactone. We will follow chemistries and replace as necessary. (6) Encephalopathy Is this a current diagnosis for this admission?: Yes Plan: Resolved. - Time Time Spent with patient: 35 or more minutes Medications reviewed and adjusted accordingly: Yes Anticipated discharge: Hospice
[2019-04-12 05:27] LABS: HEMATOCRIT 30.7 % (36.0-47.0); HEMOGLOBIN 10.3 g/dL (12.0-15.5); MEAN CORPUSCULAR HEMOGLOBIN 26.2 pg (27.0-33.4); MEAN CORPUSCULAR HGB CONC 33.5 g/dL (32.0-36.0); MEAN CORPUSCULAR VOLUME 78 fl (80-97); PLATELET COUNT 348 10^3/uL (150-450); RED BLOOD COUNT 3.91 10^6/uL (3.72-5.28); RED CELL DISTRIBUTION WIDTH 17.2 % (11.5-14.0); WHITE BLOOD COUNT 9.9 10^3/uL (4.0-10.5)
[2019-04-12 05:45] LABS: ANION GAP 9 (5-19); BLOOD UREA NITROGEN 52 mg/dL (7-20); CALCIUM 8.3 mg/dL (8.4-10.2); CARBON DIOXIDE 28 mmol/L (22-30); CHLORIDE 97 mmol/L (98-107); GLUCOSE 114 mg/dL (75-110); POTASSIUM 5.2 mmol/L (3.6-5.0)
[2019-04-12 06:36] LABS: HEPATITS B SURFACE ANTIGEN Negative (Negative)
[2019-04-12 08:17] LABS: HEPATITIS C VIRUS ANTIBODY <0.1 s/co ratio (0.0-0.9)
--- NOTE | 2019-04-12 08:19 | PDOC CONSULTATION ---
Consultation Consult Date: 04/12/19 Attending physician:: JERO CASTILLO Provider Consulted: EYAL MURRAY Consult reason:: Abdominal distention, weight loss, concern of abdominal carcinomatosis, pulmonary nodules History of Present Illness Admission Date/PCP: 04/10/19 22:20 Patient complains of: Abdominal distention, pain History of Present Illness: SEAN SRINIVASAN is a 73 year old female who presents with abdominal distention and pain, she herself is a poor historian but is alert and oriented to person place, per notes she has been doing poorly at home for a few weeks at least, ultimately she was brought via EMS under the direction of her son, sounds like the abdominal issues and failure to thrive has been ongoing for a while, CT imaging indicated ascites, concern of carcinomatosis with omental caking, retroperitoneal adenopathy in the L4/5 region, pulmonary nodules largest 1 cm with pleural effusion. Patient was attempted to have paracentesis but was noted to have a loculated effusion, thoracentesis was attempted but patient was moving too much and not compliant. Past Medical History Cardiac Medical History: Reports: None Psychiatric Medical History: Reports: Dementia - Patient's son and informed a nurse via telephone of this diagnosis Past Surgical History Past Surgical History: Reports: None Social History Information Source: Patient Lives with: Family Smoking Status: Never Smoker Electronic Cigarette use?: No Frequency of Alcohol Use: None Drugs: None - Advance Directive Resuscitation Status: Full Code Family History Family History: Other - Unable to obtain Parental Family History Reviewed: Yes Children Family History Reviewed: Yes Sibling(s) Family History Reviewed.: Yes Medication/Allergy Home Medications: No Home Medications 04/11/19 Allergies/Adverse Reactions: No Known Allergies Allergy (Unverified 04/10/19 20:57) Review of Systems Constitutional: ABSENT: chills, fever(s), headache(s), weight gain, weight loss Eyes: ABSENT: visual disturbances Ears: ABSENT: hearing changes Cardiovascular: ABSENT: chest pain, dyspnea on exertion, edema, orthropnea, palpitations Respiratory: ABSENT: cough, hemoptysis Gastrointestinal: ABSENT: abdominal pain, constipation, diarrhea, hematemesis, hematochezia, nausea, vomiting Genitourinary: ABSENT: dysuria, hematuria Musculoskeletal: ABSENT: joint swelling Integumentary: ABSENT: rash, wounds Neurological: ABSENT: abnormal gait, abnormal speech, confusion, dizziness, focal weakness, syncope Psychiatric: ABSENT: anxiety, depression, homidical ideation, suicidal ideation Endocrine: ABSENT: cold intolerance, heat intolerance, polydipsia, polyuria Hematologic/Lymphatic: ABSENT: easy bleeding, easy bruising Physical Exam Vital Signs: Temp Pulse Resp BP Pulse Ox 97.6 F 75 16 91/60 L 100 04/12/19 04:01 04/12/19 07:00 04/12/19 04:01 04/12/19 04:01 04/12/19 04:01 Intake & Output 04/11/19 04/12/19 04/13/19 06:59 06:59 06:59 Intake Total 943 50 Balance 943 50 Weight 53.5 kg 53.4 kg General appearance: PRESENT: no acute distress, well-developed, well-nourished Head exam: PRESENT: atraumatic, normocephalic Eye exam: PRESENT: conjunctiva pink, EOMI, PERRLA. ABSENT: scleral icterus Ear exam: PRESENT: normal external ear exam Mouth exam: PRESENT: moist, tongue midline Neck exam: ABSENT: carotid bruit, JVD, lymphadenopathy, thyromegaly Respiratory exam: PRESENT: clear to auscultation mickey. ABSENT: rales, rhonchi, wheezes Cardiovascular exam: PRESENT: RRR. ABSENT: diastolic murmur, rubs, systolic murmur Pulses: PRESENT: normal dorsalis pedis pul Vascular exam: PRESENT: normal capillary refill GI/Abdominal exam: PRESENT: normal bowel sounds, soft. ABSENT: distended, guarding, mass, organolmegaly, rebound, tenderness Rectal exam: PRESENT: deferred Extremities exam: PRESENT: full ROM. ABSENT: calf tenderness, clubbing, pedal edema Neurological exam: PRESENT: alert, awake, oriented to person, oriented to place, oriented to time, oriented to situation, CN II-XII grossly intact. ABSENT: motor sensory deficit Psychiatric exam: PRESENT: appropriate affect, normal mood. ABSENT: homicidal ideation, suicidal ideation Skin exam: PRESENT: dry, intact, warm. ABSENT: cyanosis, rash Results Laboratory Results: 04/12/19 05:00 04/12/19 05:00 04/12/19 04/12/19 05:00 05:00 WBC 9.9 RBC 3.91 Hgb 10.3 L Hct 30.7 L MCV 78 L MCH 26.2 L MCHC 33.5 RDW 17.2 H Plt Count 348 Sodium 134.2 L Potassium 5.2 H Chloride 97 L Carbon Dioxide 28 Anion Gap 9 BUN 52 H Creatinine 2.40 H Est GFR ( Amer) 24 L Glucose 114 H Calcium 8.3 L 04/10/19 04/10/19 04/10/19 18:05 18:05 18:05 Creatine Kinase < 20 L CK-MB (CK-2) 1.11 Troponin I 0.014 Cancelled NT-Pro-B Natriuret Pep 8760 H 04/10/19 04/11/19 04/11/19 20:35 02:59 08:23 Creatine Kinase CK-MB (CK-2) Troponin I 0.016 0.017 0.013 NT-Pro-B Natriuret Pep 04/11/19 15:10 Creatine Kinase CK-MB (CK-2) Troponin I < 0.012 NT-Pro-B Natriuret Pep Impressions: Chest X-Ray 04/10/19 17:56 IMPRESSION: Hypoventilated lungs and right diaphragmatic eventration. Bibasilar airspace opacities. Cardiomegaly. Abdomen/Pelvis CT 04/10/19 23:05 IMPRESSION: Large amount of fluid within the abdomen and pelvis with multiple septations containing bubbles of air centrally. This may be due to bacterial peritonitis or peritoneal carcinomatosis. Lobulated mass anterior to the aorta at the level of L4-L5, concerning for malignancy/lymphadenopathy. Pulmonary nodules measuring up to 1 cm in size. Recommend repeat CT at 3, 9, and 24 months; PET-CT; or biopsy. Small right pleural effusion. TECHNICAL DOCUMENTATION: Quality ID # 436: Final reports with documentation of one or more dose reduction techniques (e.g., Automated exposure control, adjustment of the mA and/or kV according to patient size, use of iterative reconstruction technique) copyright 2011 [email or web address]- All Rights Reserved Chest Ultrasound 04/11/19 00:00 IMPRESSION: Moderate amount of fluid in the right pleural space. Despite the presence of the fluid the patient was unable to be seated upright or positioned in a manner that would enable the underground truck operator to perform a th oracentesis. Abdomen Ultrasound 04/11/19 09:33 IMPRESSION: On ultrasound the loculated fluid described on the correlative CT is complex and appears to contain solid components. 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 Status: Image reviewed by me Assessment & Plan - Diagnosis (1) Peritoneal carcinomatosis Is this a current diagnosis for this admission?: Yes Plan: Overall picture concerning for some sort of a GI or BAILING MACHINE OPERATOR malignancy with the carcinomatosis noted, the best area to go after would be the L4/5 re troperitoneal adenopathy but unsure if it is possible. Have placed a call to radiology to discuss. - Time Time Spent: Greater than 70 Minutes - Inpatient Certification Based on my medical assessment, after consideration of the patient's comorbidities, presenting symptoms, or acuity I expect that the services needed warrant INPATIENT care.: Yes I certify that my determination is in accordance with my understanding of Medicare's requirements for reasonable and necessary INPATIENT services [42 CFR 412.3e].: Yes Medical Necessity: Need for Surgery
[2019-04-12] MEDS: SPIRONOLACTONE 25 MG TABLET PO SCH (09:28)
[2019-04-12] MEDS: VALSARTAN 80 MG TABLET PO SCH (09:28)
[2019-04-12] MEDS: CARVEDILOL 3.125 MG TABLET PO SCH ×2 (09:28→21:48)
[2019-04-12] MEDS: FUROSEMIDE INJ/PF 20 MG/2 ML SDV IV SCH (09:29)
[2019-04-12] MEDS: CEFTRIAXONE 1 GM/D5W RTU 1 GM/50 ML RTUPB IV SCH (09:29)
[2019-04-12] MEDS: ASPIRIN 81 MG TABLET, ENT COATED PO SCH (09:30)
[2019-04-12] MEDS: POTASSIUM CHLORIDE 10 MEQ TABLET.ER PO SCH (09:30)
--- NOTE | 2019-04-12 10:01 | PDOC PROGRESS REPORT ---
Subjective Progress Note for:: 04/12/19 Reason For Visit: DEMENTIA,HEART FAILURE 04/12/2019 Patient was admitted with shortness of breath, new onset CHF, abdominal masses, acute kidney injury Physical Exam Vital Signs: Temp Pulse Resp BP Pulse Ox 97.4 F 77 18 114/75 97 04/12/19 08:01 04/12/19 08:01 04/12/19 08:01 04/12/19 08:01 04/12/19 08:01 Intake & Output 04/11/19 04/12/19 04/13/19 06:59 06:59 06:59 Intake Total 943 50 Balance 943 50 Weight 53.5 kg 53.4 kg General appearance: PRESENT: no acute distress Respiratory exam: PRESENT: clear to auscultation mickey. ABSENT: rales, rhonchi, wheezes Cardiovascular exam: PRESENT: RRR. ABSENT: diastolic murmur, rubs, systolic murmur Neurological exam: PRESENT: alert, oriented to person, oriented to place, oriented to time, other - Patient seems to be oriented to her situation Psychiatric exam: PRESENT: flat affect Results Laboratory Results: 04/12/19 05:00 04/12/19 05:00 04/12/19 04/12/19 05:00 05:00 WBC 9.9 RBC 3.91 Hgb 10.3 L Hct 30.7 L MCV 78 L MCH 26.2 L MCHC 33.5 RDW 17.2 H Plt Count 348 Sodium 134.2 L Potassium 5.2 H Chloride 97 L Carbon Dioxide 28 Anion Gap 9 BUN 52 H Creatinine 2.40 H Est GFR ( Amer) 24 L Glucose 114 H Calcium 8.3 L 04/10/19 04/10/19 04/10/19 18:05 18:05 18:05 Creatine Kinase < 20 L CK-MB (CK-2) 1.11 Troponin I 0.014 Cancelled NT-Pro-B Natriuret Pep 8760 H 04/10/19 04/11/19 04/11/19 20:35 02:59 08:23 Creatine Kinase CK-MB (CK-2) Troponin I 0.016 0.017 0.013 NT-Pro-B Natriuret Pep 04/11/19 15:10 Creatine Kinase CK-MB (CK-2) Troponin I < 0.012 NT-Pro-B Natriuret Pep Impressions: Chest X-Ray 04/10/19 17:56 IMPRESSION: Hypoventilated lungs and right diaphragmatic eventration. Bibasilar airspace opacities. Cardiomegaly. Abdomen/Pelvis CT 04/10/19 23:05 IMPRESSION: Large amount of fluid within the abdomen and pelvis with multiple septations containing bubbles of air centrally. This may be due to bacterial peritonitis or peritoneal carcinomatosis. Lobulated mass anterior to the aorta at the level of L4-L5, concerning for malignancy/lymphadenopathy. Pulmonary nodules measuring up to 1 cm in size. Recommend repeat CT at 3, 9, and 24 months; PET-CT; or biopsy. Small right pleural effusion. TECHNICAL DOCUMENTATION: Quality ID # 436: Final reports with documentation of one or more dose reduction techniques (e.g., Automated exposure control, adjustment of the mA and/or kV according to patient size, use of iterative reconstruction technique) copyright 2011 [employer]- All Rights Reserved Chest Ultrasound 04/11/19 00:00 IMPRESSION: Moderate amount of fluid in the right pleural space. Despite the presence of the fluid the patient was unable to be seated upright or positioned in a manner that would enable the bench press operator to perform a thor acentesis. Abdomen Ultrasound 04/11/19 09:33 IMPRESSION: On ultrasound the loculated fluid described on the correlative CT is complex and appears to contain solid components. 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 Assessment and Plan - Diagnosis (1) Abdominal mass Qualifiers: Abdominal location: left lower quadrant Qualified Code(s): R19.04 - Left lower quadrant abdominal swelling, mass and lump Is this a current diagnosis for this admission?: Yes (2) Acute renal failure Is this a current diagnosis for this admission?: Yes (3) Encephalopathy Is this a current diagnosis for this admission?: Yes (4) Hypoxia Is this a current diagnosis for this admission?: Yes (5) New onset of congestive heart failure Is this a current diagnosis for this admission?: Yes (6) Pleural effusion Is this a current diagnosis for this admission?: Yes - Plan Summary Summary: 04/12/2019 Temperature 97.6 pulse 77. Your blood pressure was slightly low at 91/60 but that was early this morning. At 0800 hrs. her pressure has come up to 114/75 which appears to be close to baseline O2 sat varies widely from 84% to 100% on 3 L Patient's renal functions appear to be worsening with her creatinine today up to 2.4, from her admission of 1.86 BUN is up to 52 whereas on admission it was 39 Patient is currently receiving Lasix 20 mg IV every 12 hours as well as spironolactone 100 mg daily According to the chart patient was on no home medications Patient's IV fluids are running at 50 mL's per hour. Going to increase her IV fluids to 100/h and cut her Lasix back to just once daily Follow with serial labs 1 of 2 blood cultures is positive for gram-positive cocci. She is currently on Rocephin Patient told the oncologist this morning that she wanted to have the biopsy done to find out if she has cancer but then she told me with the sitter in the room as a witness that she did not want anything done. Wait for her son to come to the room and discussed this. Patient understood that by not doing the biopsy she would not know if this is cancer. If patient continues to refuse the biopsy then we will send her home with hospice - Time Time Spent with patient: 25-34 minutes
[2019-04-12 11:48] LABS: ANION GAP 10 (5-19); BLOOD UREA NITROGEN 53 mg/dL (7-20); CALCIUM 8.4 mg/dL (8.4-10.2); CARBON DIOXIDE 27 mmol/L (22-30); CHLORIDE 97 mmol/L (98-107); GLUCOSE 135 mg/dL (75-110)
[2019-04-12] MEDS: OXYCODONE-ACETAMINOPHEN 5-325 MG TABLET PO PRN ×2 (12:03→18:51)
[2019-04-12] MEDS: DEXTROSE 5%-NORMAL SALINE 1,000 ML IV PRN (13:27)
[2019-04-13] MEDS: DEXTROSE 5%-NORMAL SALINE 1,000 ML IV PRN ×2 (00:26→11:22)
--- NOTE | 2019-04-13 09:03 | PDOC PROGRESS REPORT ---
Subjective Progress Note for:: 04/13/19 Subjective:: Patient still confused, family is going to meet with hospice at 10 AM. Reason For Visit: DEMENTIA,HEART FAILURE Physical Exam Vital Signs: Temp Pulse Resp BP Pulse Ox 97.5 F 83 14 117/79 88 L 04/13/19 08:17 04/13/19 08:17 04/13/19 08:17 04/13/19 08:17 04/13/19 08:17 Intake & Output 04/12/19 04/13/19 04/14/19 06:59 06:59 06:59 Intake Total 50 2049 Balance 50 2049 Weight 53.4 kg 53.2 kg General appearance: PRESENT: no acute distress, well-developed, well-nourished Head exam: PRESENT: atraumatic, normocephalic Eye exam: PRESENT: conjunctiva pink, EOMI, PERRLA. ABSENT: scleral icterus Ear exam: PRESENT: normal external ear exam Mouth exam: PRESENT: moist, tongue midline Neck exam: ABSENT: carotid bruit, JVD, lymphadenopathy, thyromegaly Respiratory exam: PRESENT: clear to auscultation mickey. ABSENT: rales, rhonchi, wheezes Cardiovascular exam: PRESENT: RRR. ABSENT: diastolic murmur, rubs, systolic murmur Pulses: PRESENT: normal dorsalis pedis pul Vascular exam: PRESENT: normal capillary refill GI/Abdominal exam: PRESENT: normal bowel sounds, soft. ABSENT: distended, guarding, mass, organolmegaly, rebound, tenderness Rectal exam: PRESENT: deferred Extremities exam: PRESENT: full ROM. ABSENT: calf tenderness, clubbing, pedal edema Neurological exam: PRESENT: alert, awake, oriented to person, oriented to place, oriented to time, oriented to situation, CN II-XII grossly intact. ABSENT: motor sensory deficit Psychiatric exam: PRESENT: appropriate affect, normal mood. ABSENT: homicidal ideation, suicidal ideation Skin exam: PRESENT: dry, intact, warm. ABSENT: cyanosis, rash Results Laboratory Results: 04/12/19 05:00 04/12/19 11:03 04/12/19 11:03 Sodium 133.8 L Potassium 5.0 Chloride 97 L Carbon Dioxide 27 Anion Gap 10 BUN 53 H Creatinine 2.24 H Est GFR ( Amer) 26 L Glucose 135 H Calcium 8.4 04/11/19 01:25 Clean Catch Midstream Urine Culture - Final Mixed Urogenital Mile 04/10/19 04/10/19 04/10/19 18:05 18:05 18:05 Creatine Kinase < 20 L CK-MB (CK-2) 1.11 Troponin I 0.014 Cancelled NT-Pro-B Natriuret Pep 8760 H 04/10/19 04/11/19 04/11/19 20:35 02:59 08:23 Creatine Kinase CK-MB (CK-2) Troponin I 0.016 0.017 0.013 NT-Pro-B Natriuret Pep 04/11/19 04/12/19 15:10 11:03 Creatine Kinase CK-MB (CK-2) Troponin I < 0.012 NT-Pro-B Natriuret Pep 9030 H Impressions: Chest X-Ray 04/10/19 17:56 IMPRESSION: Hypoventilated lungs and right diaphragmatic eventration. Bibasilar airspace opacities. Cardiomegaly. Abdomen/Pelvis CT 04/10/19 23:05 IMPRESSION: Large amount of fluid within the abdomen and pelvis with multiple septations containing bubbles of air centrally. This may be due to bacterial peritonitis or peritoneal carcinomatosis. Lobulated mass anterior to the aorta at the level of L4-L5, concerning for malignancy/lymphadenopathy. Pulmonary nodules measuring up to 1 cm in size. Recommend repeat CT at 3, 9, and 24 months; PET-CT; or biopsy. Small right pleural effusion. TECHNICAL DOCUMENTATION: Quality ID # 436: Final reports with documentation of one or more dose reduction techniques (e.g., Automated exposure control, adjustment of the mA and/or kV according to patient size, use of iterative reconstruction technique) copyright 2011 [employer]- All Rights Reserved Chest Ultrasound 04/11/19 00:00 IMPRESSION: Moderate amount of fluid in the right pleural space. Despite the presence of the fluid the patient was unable to be seated upright or positioned in a manner that would enable the glue clamp operator to perform a thoracentesis. Abdomen Ultrasound 04/11/19 09:33 IMPRESSION: On ultrasound the loculated fluid described on the correlative CT is complex and appears to contain solid components. These findings are c oncerning for peritoneal carcinomatosis. Assessment & Plan - Diagnosis (1) Peritoneal carcinomatosis Is this a current diagnosis for this admission?: Yes Plan: Patient refusing further work-up and care, family and patient will discuss with hospice to see if she can get home with hospice. - Time Time Spent with patient: 15-24 minutes
[2019-04-13] MEDS ORDERED: FUROSEMIDE INJ/PF 20 MG/2 ML SDV IV SCH (10:00)
[2019-04-13] MEDS: CARVEDILOL 3.125 MG TABLET PO SCH (11:11)
[2019-04-13] MEDS: OXYCODONE-ACETAMINOPHEN 5-325 MG TABLET PO PRN (11:12)
[2019-04-13] MEDS: ASPIRIN 81 MG TABLET, ENT COATED PO SCH (11:12)
--- NOTE | 2019-04-13 11:13 | PDOC PROGRESS REPORT ---
Subjective Progress Note for:: 04/13/19 Reason For Visit: DEMENTIA,HEART FAILURE 04/13/2019 patient admitted with shortness of breath, new onset CHF, abdominal masses probably cancer, acute kidney injury Physical Exam Vital Signs: Temp Pulse Resp BP Pulse Ox 97.5 F 83 14 117/79 88 L 04/13/19 08:17 04/13/19 08:17 04/13/19 08:17 04/13/19 08:17 04/13/19 08:17 Intake & Output 04/12/19 04/13/19 04/14/19 06:59 06:59 06:59 Intake Total 50 2049 Balance 50 2049 Weight 53.4 kg 53.2 kg General appearance: PRESENT: no acute distress, other - Patient is lethargic this morning confused and refusing basically all treatments Respiratory exam: PRESENT: decreased breath sounds, other - Due to poor effort Cardiovascular exam: PRESENT: RRR. ABSENT: diastolic murmur, rubs, systolic murmur Neurological exam: PRESENT: altered Psychiatric exam: PRESENT: depressed, flat affect Results Laboratory Results: 04/12/19 05:00 04/12/19 11:03 04/12/19 11:03 Sodium 133.8 L Potassium 5.0 Chloride 97 L Carbon Dioxide 27 Anion Gap 10 BUN 53 H Creatinine 2.24 H Est GFR ( Amer) 26 L Glucose 135 H Calcium 8.4 04/11/19 01:25 Clean Catch Midstream Urine Culture - Final Mixed Urogenital Mile 04/10/19 04/10/19 04/10/19 18:05 18:05 18:05 Creatine Kinase < 20 L CK-MB (CK-2) 1.11 Troponin I 0.014 Cancelled NT-Pro-B Natriuret Pep 8760 H 04/10/19 04/11/19 04/11/19 20:35 02:59 08:23 Creatine Kinase CK-MB (CK-2) Troponin I 0.016 0.017 0.013 NT-Pro-B Natriuret Pep 04/11/19 04/12/19 15:10 11:03 Creatine Kinase CK-MB (CK-2) Troponin I < 0.012 NT-Pro-B Natriuret Pep 9030 H Impressions: Chest X-Ray 04/10/19 17:56 IMPRESSION: Hypoventilated lungs and right diaphragmatic eventration. Bibasilar airspace opacities. Cardiomegaly. Abdomen/Pelvis CT 04/10/19 23:05 IMPRESSION: Large amount of fluid within the abdomen and pelvis with multiple septations containing bubbles of air centrally. This may be due to bacterial peritonitis or peritoneal carcinomatosis. Lobulated mass anterior to the aorta at the level of L4-L5, concerning for malignancy/lymphadenopathy. Pulmonary nodules measuring up to 1 cm in size. Recommend repeat CT at 3, 9, and 24 months; PET-CT; or biopsy. Small right pleural effusion. TECHNICAL DOCUMENTATION: Quality ID # 436: Final reports with documentation of one or more dose reduction techniques (e.g., Automated exposure control, adjustment of the mA and/or kV according to patient size, use of iterative reconstruction technique) copyright 2011 [employer]- All Rights Reserved Chest Ultrasound 04/11/19 00:00 IMPRESSION: Moderate amount of fluid in the right pleural space. Despite the presence of the fluid the patient was unable to be seated upright or positioned in a manner that would enable the geophysical operator to perform a thoracentesis. Abdomen Ultrasound 04/11/19 09:33 IMPRESSION: On ultrasound the loculated fluid described on the correlative CT is complex and appears to contain solid components. 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 Assessment and Plan - Diagnosis (1) Abdominal mass Qualifiers: Abdominal location: left lower quadrant Qualified Code(s): R19.04 - Left lower quadrant abdominal swelling, mass and lump Is this a current diagnosis for this admission?: Yes (2) Acute renal failure Is this a current diagnosis for this admission?: Yes (3) Encephalopathy Is this a current diagnosis for this admission?: Yes (4) Hypoxia Is this a current diagnosis for this admission?: Yes (5) New onset of congestive heart failure Is this a current diagnosis for this admission?: Yes (6) Pleural effusion Is this a current diagnosis for this admission?: Yes - Plan Summary Summary: 04/12/2019 Temperature 97.6 pulse 77. Your blood pressure was slightly low at 91/60 but that was early this morning. At 0800 hrs. her pressure has come up to 114/75 which appears to be close to baseline O2 sat varies widely from 84% to 100% on 3 L Patient's renal functions appear to be worsening with her creatinine today up to 2.4, from her admission of 1.86 BUN is up to 52 whereas on admission it was 39 Patient is currently receiving Lasix 20 mg IV every 12 hours as well as spironolactone 100 mg daily According to the chart patient was on no home medications Patient's IV fluids are running at 50 mL's per hour. Going to increase her IV fluids to 100/h and cut her Lasix back to just once daily Follow with serial labs 1 of 2 blood cultures is positive for gram-positive cocci. She is currently on Rocephin Patient told the oncologist this morning that she wanted to have the biopsy done to find out if she has cancer but then she told me with the sitter in the room as a witness that she did not want anything done. Wait for her son to come to the room and discussed this. Patient understood that by not doing the biopsy she would not know if this is cancer. If patient continues to refuse the biopsy then we will send her home with hospice 04/13/2019 Patient and family are scheduled to meet with hospice today at 10 AM. Temperature 97.5 pulse 83 blood pressure 117/79 O2 sat running anywhere from 88 to 100% on room air Patient's labs appear grossly normal Urine culture just shows a mixed growth Due to patient refusing treatments and other diagnostic studies family and patient are meeting with hospice today. Oncology agrees with consulting hospice Patient is stable using only Percocet for her pain We will continue Rocephin and switch to p.o. antibiotics at discharge - Time Time Spent with patient: 25-34 minutes
[2019-04-13] MEDS: CEFTRIAXONE 1 GM/D5W RTU 1 GM/50 ML RTUPB IV SCH (11:14)
[2019-04-13] MEDS: SPIRONOLACTONE 25 MG TABLET PO SCH (11:30)
[2019-04-13] MEDS: VALSARTAN 80 MG TABLET PO SCH (11:31)
--- NOTE | 2019-04-13 11:45 | XCELERA REPORT ---
[address] [address] Transthoracic Echocardiogram Report Name: SEAN SRINIVASAN Age: 73 yrs Gender: Female : 1945 Patient Status: Inpatient Patient Location: [address] [place], [place] [address] Study Date: 04/11/2019 08:39 AM Height: 64 in Weight: 123 lb BSA: 1.6 m2 Procedure: A two-dimensional transthoracic echocardiogram with color flow and Doppler was performed. Images were not obtained from all of the standard acoustic windows due to the limited scope of the study. No subcostal views. Reason For Study: systolic murmur History: systolic murmur. Ordering Physician: JERO CASTILLO Performed By: Any Ruano Interpretation Summary The left ventricle is normal in size. There is normal left ventricular wall thickness. LV EF is 55% Left ventricular systolic function is low normal. Doppler measurements suggest impaired left ventricular relaxation, which is associated with grade I/IV or mild diastolic dysfunction The left ventricular wall motion is normal. There is no thrombus. Cannot assess ASD,VSD ,or PFO. The right ventricle is normal in size and function. The right atrium is normal. The left atrium is mildly dilated. The mitral valve leaflets appear thickened, but open well. There is moderate mitral valve prolapse. There is no mitral valve stenosis. There is a moderate to severe amount of mitral regurgitation There is no aortic valvular vegetation. There is no aortic valve stenosis There is no LVOT obstruction. No aortic regurgitation is present. There is no tricuspid stenosis. There is a mild to moderate amount of tricuspid regurgitation There is mild pulmonary hypertension by echo RVSP is 44 mm of Hg ,with RA mean of 10. There is no pulmonic valvular stenosis. There is a mild amount of pulmonic regurgitation The aortic root is normal size. The inferior vena cava was not visualized There is no pericardial effusion. MMode/2D Measurements & Calculations RVDd: 2.1 cm LVIDd: 4.8 cm FS: 24.9 % Ao root diam: 3.3 cm IVSd: 1.0 cm LVIDs: 3.6 cm EDV(Teich): Ao root area: LVPWd: 0.94 cm 105.5 ml 8.7 cm2 ESV(Teich): 53.5 mlLA dimension: 4.3 cm EF(Teich): 49.3 % LVOT diam: 2.0 cm LVLd ap4: 6.1 cm SV(MOD-sp4): LVOT area: EDV(MOD-sp4): 33.0 ml 68.0 ml 3.0 cm2 LVLs ap4: 5.5 cm ESV(MOD-sp4): 35.0 ml EF(MOD-sp4): 48.5 % Doppler Measurements & Calculations MV E max radhika: MV P1/2t max radhika: Ao V2 max: LV V1 max P.7 cm/sec 68.8 cm/sec 106.7 cm/sec 2.6 mmHg MV A max radhika: MV P1/2t: 61.4 msec Ao max PG: LV V1 max: 102.7 cm/sec MVA(P1/2t): 3.6 cm2 4.6 mmHg 80.6 cm/sec MV E/A: 0.60 MV dec slope: SUYAPA(V,D): 2.3 cm2 327.9 cm/sec2 MV dec time: 0.17 sec PA V2 max: PI end-d radhika: TR max radhika: MV P1/2t-pr_phl: 84.4 cm/sec 145.2 cm/sec 293.2 cm/sec 61.4 msec PA max P.8 mmHg TR max P.4 mmHg Left Ventricle The left ventricle is normal in size. There is normal left ventricular wall thickness. LV EF is 55%. Left ventricular systolic function is low normal. Doppler measurements suggest impaired left ventricular relaxation, which is associated with grade I/IV or mild diastolic dysfunction. The left ventricular wall motion is normal. There is no thrombus. Cannot assess ASD,VSD ,or PFO. Right Ventricle The right ventricle is normal in size and function. Atria The right atrium is normal. The left atrium is mildly dilated. Mitral Valve The mitral valve leaflets appear thickened, but open well. There is moderate mitral valve prolapse. There is no mitral valve stenosis. There is a moderate to severe amount of mitral regurgitation. Aortic Valve There is no aortic valvular vegetation. There is no aortic valve stenosis. There is no LVOT obstruction. No aortic regurgitation is present. Tricuspid Valve There is no tricuspid stenosis. There is a mild to moderate amount of tricuspid regurgitation. There is mild pulmonary hypertension by echo. RVSP is 44 mm of Hg ,with RA mean of 10. Pulmonic Valve There is no pulmonic valvular stenosis. There is a mild amount of pulmonic regurgitation. Great Vessels The aortic root is normal size. The inferior vena cava was not visualized. Effusions There is no pericardial effusion. : JERO CASTILLO Lakshmi
--- NOTE | 2019-04-13 16:43 | PDOC DISCHARGE SUMMARY ---
Impression - Admit/DC Date/PCP Admission Date/Primary Care Provider: 04/10/19 22:20 Discharge Date: 04/13/19 - Discharge Diagnosis (1) Abdominal mass Is this a current diagnosis for this admission?: Yes (2) Acute renal failure Is this a current diagnosis for this admission?: Yes (3) Encephalopathy Is this a current diagnosis for this admission?: Yes (4) Hypoxia Is this a current diagnosis for this admission?: Yes (5) New onset of congestive heart failure Is this a current diagnosis for this admission?: Yes (6) Pleural effusion Is this a current diagnosis for this admission?: Yes - Assessment Summary: 04/12/2019 Temperature 97.6 pulse 77. Your blood pressure was slightly low at 91/60 but that was early this morning. At 0800 hrs. her pressure has come up to 114/75 which appears to be close to baseline O2 sat varies widely from 84% to 100% on 3 L Patient's renal functions appear to be worsening with her creatinine today up to 2.4, from her admission of 1.86 BUN is up to 52 whereas on admission it was 39 Patient is currently receiving Lasix 20 mg IV every 12 hours as well as spironolactone 100 mg daily According to the chart patient was on no home medications Patient's IV fluids are running at 50 mL's per hour. Going to increase her IV fluids to 100/h and cut her Lasix back to just once daily Follow with serial labs 1 of 2 blood cultures is positive for gram-positive cocci. She is currently on Rocephin Patient told the oncologist this morning that she wanted to have the biopsy done to find out if she has cancer but then she told me with the sitter in the room as a witness that she did not want anything done. Wait for her son to come to the room and discussed this. Patient understood that by not doing the biopsy she would not know if this is cancer. If patient continues to refuse the biopsy then we will send her home with hospice 04/13/2019 Patient and family are scheduled to meet with hospice today at 10 AM. Temperature 97.5 pulse 83 blood pressure 117/79 O2 sat running anywhere from 88 to 100% on room air Patient's labs appear grossly normal Urine culture just shows a mixed growth Due to patient refusing treatments and other diagnostic studies family and patient are meeting with hospice today. Oncology agrees with consulting hospice Patient is stable using only Percocet for her pain We will continue Rocephin and switch to p.o. antibiotics at discharge Patient and family have met with hospice. Patient will be going home with hospice - Additional Information Resuscitation Status: Do Not Resuscitate Discharge Diet: As Tolerated Discharge Activity: Activity As Tolerated Prescriptions: Spironolactone [Aldactone 25 mg Tablet] 100 mg PO DAILY 15 Days #60 tablet Carvedilol [Coreg 3.125 mg Tablet] 3.125 mg PO Q12 30 Days #60 tablet Valsartan [Diovan 80 mg Tablet] 80 mg PO DAILY 30 Days #30 tablet Furosemide [Lasix 20 mg Tablet] 20 mg PO QAM #30 tablet Oxycodone HCl/Acetaminophen [Percocet 5-325 mg Tablet] 1 tab PO Q4HP PRN 3 Days #12 tablet PRN Reason: Home Medications: Acetaminophen [Tylenol 325 mg Tablet] 650 mg PO Q4HP PRN tablet 04/13/19 Aspirin [Ecotrin 81 mg EC Tablet] 81 mg PO DAILY tabec 04/13/19 Carvedilol [Coreg 3.125 mg Tablet] 3.125 mg PO Q12 30 Days #60 tablet 04/13/19 Furosemide [Lasix 20 mg Tablet] 20 mg PO QAM #30 tablet 04/13/19 Mag Hydrox/Al Hydrox/Simeth [Maalox Plus Susp 30 Udcup] 30 ml PO Q4HP PRN udc 04/13/19 Oxycodone HCl/Acetaminophen [Percocet 5-325 mg Tablet] 1 tab PO Q4HP PRN 3 Days #12 tablet 04/13/19 Spironolactone [Aldactone 25 mg Tablet] 100 mg PO DAILY 15 Days #60 tablet 04/13/19 Valsartan [Diovan 80 mg Tablet] 80 mg PO DAILY 30 Days #30 tablet 04/13/19 History of Present Illiness History of Present Illness: SEAN SRINIVASAN is a 73 year old female Physical Exam Vital Signs: Temp Pulse Resp BP Pulse Ox 97.4 F 85 14 96/67 L 89 L 04/13/19 15:40 04/13/19 15:40 04/13/19 15:40 04/13/19 15:40 04/13/19 15:40 Intake & Output 04/12/19 04/13/19 04/14/19 06:59 06:59 06:59 Intake Total 2049 Balance 2049 Weight 53.4 kg 53.2 kg Results Laboratory Results: WBC 9.9 10^3/uL (4.0-10.5) 04/12/19 05:00 RBC 3.91 10^6/uL (3.72-5.28) 04/12/19 05:00 Hgb 10.3 g/dL (12.0-15.5) L 04/12/19 05:00 Hct 30.7 % (36.0-47.0) L 04/12/19 05:00 MCV 78 fl (80-97) L 04/12/19 05:00 MCH 26.2 pg (27.0-33.4) L 04/12/19 05:00 MCHC 33.5 g/dL (32.0-36.0) 04/12/19 05:00 RDW 17.2 % (11.5-14.0) H 04/12/19 05:00 Plt Count 348 10^3/uL (150-450) 04/12/19 05:00 Lymph % (Auto) Not Reportable 04/11/19 06:04 [place] % (Auto) Not Reportable 04/11/19 06:04 Eos % (Auto) Not Reportable 04/11/19 06:04 Baso % (Auto) Not Reportable 04/11/19 06:04 Reticulocyte # 0.030 10^6/uL (0.028-0.122) 04/10/19 18:05 Absolute Neuts (auto) Not Reportable 04/11/19 06:04 Absolute Lymphs (auto) Not Reportable 04/11/19 06:04 Absolute Monos (auto) Not Reportable 04/11/19 06:04 Absolute Eos (auto) Not Reportable 04/11/19 06:04 Absolute Basos (auto) Not Reportable 04/11/19 06:04 Total Counted 100 04/11/19 06:04 Seg Neutrophils % Not Reportable 04/11/19 06:04 Seg Neuts % (Manual) 97 % (42-78) H 04/11/19 06:04 Lymphocytes % (Manual) 1 % (13-45) L 04/11/19 06:04 Monocytes % (Manual) 2 % (3-13) L 04/11/19 06:04 Eosinophils % (Manual) 0 % (0-6) 04/11/19 06:04 Basophils % (Manual) 0 % (0-2) 04/11/19 06:04 Abs Neuts (Manual) 10.8 10^3/uL (1.7-8.2) H 04/11/19 06:04 Abs Lymphs (Manual) 0.1 10^3/uL (0.5-4.7) L 04/11/19 06:04 Abs Monocytes (Manual) 0.2 10^3/uL (0.1-1.4) 04/11/19 06:04 Absolute Eos (Manual) 0.0 10^3/uL (0.0-0.6) 04/11/19 06:04 Abs Basophils (Manual) 0.0 10^3/uL (0.0-0.2) 04/11/19 06:04 Platelet Comment ADEQUATE 04/11/19 06:04 Anisocytosis SLIGHT 04/11/19 06:04 Microcytosis SLIGHT 04/11/19 06:04 Retic Count (auto) 0.69 % (0.66-2.85) 04/10/19 18:05 PT 16.1 SEC (11.4-15.4) H 04/11/19 10:56 INR 1.28 04/11/19 10:56 APTT 43.0 SEC (23.5-35.8) H 04/11/19 10:56 Sodium 133.8 mmol/L (137-145) L 04/12/19 11:03 Potassium 5.0 mmol/L (3.6-5.0) 04/12/19 11:03 Chloride 97 mmol/L (98-107) L 04/12/19 11:03 Carbon Dioxide 27 mmol/L (22-30) 04/12/19 11:03 Anion Gap 10 (5-19) 04/12/19 11:03 BUN 53 mg/dL (7-20) H 04/12/19 11:03 Creatinine 2.24 mg/dL (0.52-1.25) H 04/12/19 11:03 Est GFR ( Amer) 26 (>60) L 04/12/19 11:03 Est GFR (MDRD) Non-Af 21 (>60) L 04/12/19 11:03 Glucose 135 mg/dL (75-110) H 04/12/19 11:03 POC Glucose 67 mg/dL (70-110) L 04/11/19 16:43 Lactic Acid 1.3 mmol/L (0.7-2.1) 04/10/19 21:39 Calcium 8.4 mg/dL (8.4-10.2) 04/12/19 11:03 Magnesium 1.6 mg/dL (1.6-2.3) 04/10/19 18:05 Iron 19.3 ug/dL (37-170) L 04/10/19 18:05 TIBC 148 ug/dL (250-450) L 04/10/19 18:05 % Saturation 13 % 04/10/19 18:05 Ferritin 262.00 ng/mL (11.1-264.0) 04/10/19 18:05 Total Bilirubin 0.6 mg/dL (0.2-1.3) 04/10/19 18:05 Direct Bilirubin 0.3 mg/dL (0.0-0.4) 04/10/19 18:05 Neonat Total Bilirubin Not Reportable 04/10/19 18:05 Neonat Direct Bilirubin Not Reportable 04/10/19 18:05 Neonat Indirect Bili Not Reportable 04/10/19 18:05 AST 14 U/L (14-36) 04/10/19 18:05 ALT 9 U/L (<35) 04/10/19 18:05 Alkaline Phosphatase 107 U/L (38-126) 04/10/19 18:05 Creatine Kinase < 20 U/L (30-135) L 04/10/19 18:05 CK-MB (CK-2) 1.11 ng/mL (<4.55) 04/10/19 18:05 Troponin I < 0.012 ng/mL 04/11/19 15:10 NT-Pro-B Natriuret Pep 9030 pg/mL (<125) H 04/12/19 11:03 Total Protein 4.9 g/dL (6.3-8.2) L 04/10/19 18:05 Albumin 2.1 g/dL (3.5-5.0) L 04/10/19 18:05 Vitamin B12 > 1000.0 pg/mL (239-931) H 04/10/19 18:05 Folate 4.35 ng/mL (>2.76) 04/10/19 18:05 TSH 2.49 uIU/mL (0.47-4.68) 04/10/19 18:05 Urine Color DARK YELLOW 04/11/19 01:25 Urine Appearance CLOUDY 04/11/19 01:25 Urine pH 5.0 (5.0-9.0) 04/11/19 01:25 Ur Specific [place] 1.019 04/11/19 01:25 Urine Protein 30 mg/dL (NEGATIVE) H 04/11/19 01:25 Urine Glucose (UA) NEGATIVE mg/dL (NEGATIVE) 04/11/19 01:25 Urine Ketones NEGATIVE mg/dL (NEGATIVE) 04/11/19 01:25 Urine Blood NEGATIVE (NEGATIVE) 04/11/19 01:25 Urine Nitrite NEGATIVE (NEGATIVE) 04/11/19 01:25 Urine Bilirubin NEGATIVE (NEGATIVE) 04/11/19 01:25 Urine Urobilinogen 2.0 mg/dL (<2.0) H 04/11/19 01:25 Ur Leukocyte Esterase SMALL (NEGATIVE) H 04/11/19 01:25 Urine WBC (Auto) 27 /HPF 04/11/19 01:25 Urine RBC (Auto) 4 /HPF 04/11/19 01:25 U Hyaline Cast (Auto) 2 /LPF 04/11/19 01:25 Squamous Epi Cells Auto 5 /HPF 04/11/19 01:25 U Non-Squamous Epis Auto 4 /HPF 04/11/19 01:25 Urine Mucus (Auto) RARE /LPF 04/11/19 01:25 Urine Yeast (Budding) PRESENT /HPF 04/11/19 01:25 Urine Ascorbic Acid NEGATIVE (NEGATIVE) 04/11/19 01:25 Hepatitis A IgM Ab Negative (Negative) 04/11/19 10:56 Hep Bs Antigen Negative (Negative) 04/11/19 10:56 Hep B Core IgM Ab Negative (Negative) 04/11/19 10:56 Hepatitis C Antibody <0.1 s/co ratio (0.0-0.9) 04/11/19 10:56 HIV 1&2 Antibody NEGATIVE (NEGATIVE) 04/11/19 10:56 04/10/19 04/10/19 04/10/19 18:05 18:05 20:35 CK-MB (CK-2) 1.11 Troponin I 0.014 Cancelled 0.016 NT-Pro-B Natriuret Pep 8760 H 04/11/19 04/11/19 04/11/19 02:59 08:23 15:10 CK-MB (CK-2) Troponin I 0.017 0.013 < 0.012 NT-Pro-B Natriuret Pep 04/12/19 11:03 CK-MB (CK-2) Troponin I NT-Pro-B Natriuret Pep 9030 H Impressions: Chest X-Ray 04/10/19 17:56 IMPRESSION: Hypoventilated lungs and right diaphragmatic eventration. Bibasilar airspace opacities. Cardiomegaly. Abdomen/Pelvis CT 04/10/19 23:05 IMPRESSION: Large amount of fluid within the abdomen and pelvis with multiple septations containing bubbles of air centrally. This may be due to bacterial peritonitis or peritoneal carcinomatosis. Lobulated mass anterior to the aorta at the level of L4-L5, concerning for malignancy/lymphadenopathy. Pulmonary nodules measuring up to 1 cm in size. Recommend repeat CT at 3, 9, and 24 months; PET-CT; or biopsy. Small right pleural effusion. TECHNICAL DOCUMENTATION: Quality ID # [id number]: Final reports with documentation of one or more dose reduction techniques (e.g., Automated exposure control, adjustment of the mA and/or kV according to patient size, use of iterative reconstruction technique) copyright 2011 [employer]- All Rights Reserved Chest Ultrasound 04/11/19 00:00 IMPRESSION: Moderate amount of fluid in the right pleural space. Despite the presence of the fluid the patient was unable to be seated upright or positioned in a manner that would enable the retread mold operator to perform a thoracentesis. Abdomen Ultrasound 04/11/19 09:33 IMPRESSION: On ultrasound the loculated fluid described on the correlative CT is complex and appears to contain solid components. 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 Plan Goals: did not schedule follow up with PCP , probably going home with hospice. will continue to follow Stroke Is this a Stroke Patient?: No Acute Heart Failure - Is this a Heart Failure Patient?: Yes Documentation of LVEF assessment?: Yes LVEF < 40%?: No- if no continue to question #3 3. Anticoagulant therapy for permanect/persistent/paraoxysmal Afib or Aflutter: N/A Follow-up Appointment scheduled within 7 days?: No, document reason - Hospice patient
[2019-04-13 16:56] VITALS: BP 116/77
== END 2019-04-13 17:52 | disposition home or self-care (01) | DRG 683 ==
LOC: ER 17:49 → EH 22:20 → 3W 04-11 00:27
PROVIDERS: ADMIT Internal Medicine; ATTEND Internal Medicine
DX: N17.9 Acute kidney failure, unspecified (principal); G93.40 Encephalopathy, unspecified; R18.8 Other ascites; R62.7 Adult failure to thrive; I50.9 Heart failure, unspecified; F03.90 Unspecified dementia, unspecified severity, without behavioral disturbance, psychotic disturbance, mood disturbance, and anxiety; R09.02 Hypoxemia; Z66 Do not resuscitate; D50.9 Iron deficiency anemia, unspecified; E87.6 Hypokalemia; Z91.19 Patient's noncompliance with other medical treatment and regimen; Z79.82 Long term (current) use of aspirin; Z68.20 Body mass index [BMI] 20.0-20.9, adult
CPT/HCPCS: 36415; 71045; 74176; 76604; 76705; 80048; 80053; 80074; 81001; 82550; 82553; 82607; 82728; 82746; 82962; 83540; 83550; 83605; 83735; 83880; 84443; 84484; 85025; 85027; 85045; 85610; 85730; 86701; 87040; 87077; 87086; 87186; 93005; 93010; 93306; 96365; 96366; 96368; 96375; 99285; J0456; J0696; J1644; J1756; J1940; J2270; J2405; J3480; J3490; J7042